=== PATIENT | female | born 2000 | race Caucasian/White ===

== ENCOUNTER 2021-08-11 16:18 | Emergency (ER) | payer OTHER, SELFPAY ==
[2021-08-11 16:30] VITALS: BP 143/82; PULSE 109; RESP 16; TEMP 37.7; O2SAT 99
[2021-08-11 16:44] VITALS: BP 143/82; PULSE 109; RESP 16; TEMP 37.7; O2SAT 99
--- NOTE | 2021-08-11 16:56 | ED.URI ---
HPI - URI/Sore Throat General Chief Complaint: Upper Respiratory Infection Stated Complaint: earpain/sore throat Time Seen by Provider: 08/11/21 16:32 Source: patient and RN notes reviewed Mode of arrival: ambulatory Limitations: no limitations History of Present Illness HPI Narrative: Patient presents today complaining of sore throat, left ear pain, fatigue, headache since yesterday. She currently rates her pain 6/10 and has been using cough drops without relief. Denies any sick contacts. Pain increases with swallowing. Denies fever, difficulty swallowing, shortness of breath. MD elicited complaint: sore throat Related Data Allergies Allergy/AdvReac Type Severity Reaction Status Date / Time acetaminophen Allergy Mild Other Unverified 11/17/18 09:12 chlorpheniramine Allergy Mild Other Unverified 11/17/18 09:12 dextromethorphan Allergy Mild Other Unverified 11/17/18 09:12 phenylpropanolamine Allergy Mild Other Unverified 11/17/18 09:12 Penicillins Allergy Other Verified 08/11/21 16:44 Review of Systems Review of Systems: CONSTITUTIONAL: Denies body aches, fever, chills, or sweats.+ Fatigue EYES: Denies visual changes, redness, or discharge. ENT: Denies rhinorrhea, congestion. + Sore throat, left ear pain CARDIOVASCULAR: Denies chest pain, palpitations, or edema. RESPIRATORY: Denies cough or dyspnea. GASTROINTESTINAL: Denies abdominal pain, nausea, vomiting, or diarrhea. GENITOURINARY: Denies dysuria or hematuria. SKIN: Denies rash, itching, or wounds. MUSCULOSKELETAL: Denies back pain, joint pain, or myalgia. NEUROLOGIC: Denies numbness, tingling, or weakness.+ Headache PSYCH: Denies depression or anxiety. PMFSH Social History Social History Smoking status: Never smoker Comments At time of signature, I have reviewed and agree with nursing past medical, surgical, social and family history unless otherwise noted. Please see nursing chart for further information. There is no relevant family history pertinent to the presenting complaint Exam Narrative: GENERAL: Well-appearing, well-nourished, and in no acute distress. HEAD: Normocephalic, atraumatic. EYES: EOMI. No redness or drainage. Conjunctivae normal. ENT: Mucous membranes pink and moist. Nares clear. No rhinorrhea. Right TM normal. Left TM retracted without signs of infection. Throat mildly erythematous without edema or exudate. Uvula midline. NECK: Normal AROM. Supple. No lymphadenopathy. CHEST: No respiratory distress. Clear to auscultation. HEART: Regular rate and rhythm. No murmur appreciated. Normal peripheral pulses. EXTREMITIES: Normal range of motion. No edema. SKIN: Warm, dry, no rash. Capillary refill normal. Normal skin turgor. NEURO: No focal deficits. Alert and oriented x3. Gait steady. PSYCH: Normal affect. No signs of depression or anxiety. Course Course Level of Care: Express Care Visit Vital Signs Vital signs: Vital Signs Temperature 99.8 F H 08/11/21 16:30 Pulse Rate 109 H 08/11/21 16:30 Respiratory Rate 16 08/11/21 16:30 Blood Pressure 143/82 H 08/11/21 16:30 Pulse Oximetry 99 08/11/21 16:30 Temperature 99.8 F H 08/11/21 16:44 Pulse Rate 109 H 08/11/21 16:44 Respiratory Rate 16 08/11/21 16:44 Blood Pressure 143/82 H 08/11/21 16:44 Pulse Oximetry 99 08/11/21 16:44 Reviewed. Pt has been instructed to follow up with her PCP regarding her elevated blood pressure today. MDM - URI/Sore Throat Differential Diagnosis Differential diagnosis: Likely upper respiratory infection, otitis media, sinusitis, viral infection, influenza, pharyngitis and other (Strep throat) Lab Data Attestation: I reviewed the patient's lab results. Labs: Influenza A Screen Positive Reference Range: Negative Influenza B Screen Negative Reference Rang
== END 2021-08-11 17:27 | disposition home or self-care (01) ==
PROVIDERS: Emergency Provider Nurse Practitioner
DX: J10.1 Influenza due to other identified influenza virus with other respiratory manifestations (principal)
CPT/HCPCS: 87081; 87804; 87880; 99213; G0463